=== PATIENT | female | born 1950 | race Caucasian/White ===

== ENCOUNTER 2016-12-16 09:03 | Emergency (ER) | payer OTHER ==
[2016-12-16 09:04] VITALS: BMI 22.3
[2016-12-16 09:16] VITALS: RESP 18; TEMP 98.8
[2016-12-16 09:52] LABS: BASO # 0.03 K/mm3 (0.0-2.0); BASO % 0.7 % (0.0-3.0); EOS # 0.1 (0.0-0.7); EOS % 1.1 % (1.5-5.0); GRAN # 1.53 (1.4-6.5); GRAN % 34.2 % (50.0-68.0); HEMATOCRIT 38.4 % (36.0-48.0); LYMPH # 2.7 (1.2-3.4); LYMPH % 59.7 % (22.0-35.0); MEAN CELL VOLUME 81.7 fl (80.0-105.0); MEAN CORPUSCULAR HEMOGLOBIN 28.1 pg (25.0-35.0); MEAN CORPUSCULAR HGB CONC 34.4 g/dl (31.0-37.0); MEAN PLATELET VOLUME 10.2 fl (7.0-11.0); MONO # 0.2 (0.1-0.6); MONO % 4.3 % (1.0-6.0); WHITE BLOOD COUNT 4.5 10^3/ul (4.5-11.0)
--- NOTE | 2016-12-16 09:52 | ED PDOC ---
Arrival/HPI - General Chief Complaint: Back Pain Time Seen by Provider: 12/16/16 09:19 Historian: Patient - History of Present Illness Narrative History of Present Illness (Text): 12/16/16 09:49 Patient is a 66 yo female presents to ED complaining of right sided back pain radiating to her lower abdomen for the past 3 days. Patient is uncertain whether there was injury, but states pain is intermittent and does not appear to be associated with walking or activity. Denies urinary symptoms. Denies rash. Denies swelling. No associated nausea or vomiting. Pain sharp and stabbing. Pain does not radiate down leg. No associated numbness or weakness to leg. Time/Duration: Prior to Arrival Symptom Onset: Gradual Past Medical History - Reproductive Menopause: Yes - Cardiac Hx Pacemaker: No - Pulmonary Hx Respiratory Disorders: No - Neurological Hx Neurological Disorder: No - HEENT Hx HEENT Disorder: No - Renal Hx Renal Disorder: No - Endocrine/Metabolic Hx Endocrine Disorders: No - Hematological/Oncological Hx Blood Disorders: No - Integumentary Hx Dermatological Disorder: No - Musculoskeletal/Rheumatological Hx Musculoskeletal Disorders: No - Psychiatric Hx Substance Use: No - Surgical History Hx Section: Yes Other/Comment: Overy cyst removal - Anesthesia Hx Anesthesia Reactions: No Hx Malignant Hyperthermia: No - Suicidal Assessment Feels Threatened In Home Enviroment: No Family/Social History Family/Social History: Unknown Family HX Smoking Status: Never Smoked Hx Alcohol Use: No Hx Substance Use: No Allergies/Home Meds Allergies/Adverse Reactions: Allergies No Known Allergies Allergy (Verified 12/16/16 09:16) Home Medications: Home Meds Medication Instructions Recorded Confirmed Simvastatin 20 mg PO DAILY 02/19/16 12/16/16 Review of Systems - Review of Systems Constitutional: absent: Fatigue, Fevers ENT: absent: Hearing Changes Respiratory: absent: SOB Cardiovascular: absent: Chest Pain Gastrointestinal: Abdominal Pain. absent: Stool Changes, Constipation, Diarrhea , Nausea, Vomiting Genitourinary Female: absent: Dysuria, Frequency, Hematuria, Urine Output Changes, Vaginal Bleeding Musculoskeletal: Back Pain. absent: Neck Pain Skin: absent: Rash Neurological: absent: Headache, Dizziness, Focal Weakness, Facial Droop Endocrine: absent: Polyuria Physical Exam Vital Signs Reviewed: Yes Vital Signs Temp Pulse Resp BP Pulse Ox 12/16/16 11:05 74 18 145/89 100 12/16/16 10:02 78 18 148/91 H 100 12/16/16 09:12 98.8 F 107 H 18 144/100 H 99 Temperature: Afebrile Appearance: Positive for: Well-Appearing, Non-Toxic Pain Distress: Mild Mental Status: Positive for: Alert and Oriented X 3 - Systems Exam Head: Present: Atraumatic Pupils: Present: PERRL Mouth: Present: Moist Mucous Membranes Pharnyx: No: ERYTHEMA Nose (Internal): Present: Normal Inspection Neck: Present: Normal Range of Motion. No: Meningeal Signs Respiratory/Chest: Present: Clear to Auscultation. No: Respiratory Distress Cardiovascular: Present: Regular Rate and Rhythm Abdomen: Present: Tenderness (MILD inguinal, rlq pain with no rebound or guarding, no vesicular rash noted). No: Peritoneal Signs, Guarding, Hernias, Scars Rectal: No: Gross Blood Back: Present: Other (pain to right lower lateral back extending to buttock, no rash or soft tissue swelling noted, no pain with straight leg testing). No: CVA Tenderness, Midline Tenderness Upper Extremity: Present: Normal Inspection Lower Extremity: Present: Normal Inspection, NORMAL PULSES, Neurovascularly Intact. No: Edema, CALF TENDERNESS, Tenderness, Swelling Neurological: Present: Motor Func Grossly Intact, Normal Sensory Function Skin: Present: Warm Psychiatric: Present: Normal Insight, Normal Concentration Medical Decision Making ED Course and Treatment: Patient is a 66 yo female, states that she has past history of kidney stones, presents to ED with history of flank pain radiating to lower abdomen. Denies known injury. Denies rash. Denies chest pain or shortness of breath. On exam, she has no pain with direct palpation or range of motion of her hip, knee or ankle. No midline lumbar tenderness noted. NO cva tenderess. UA reveals microscopic blood. CT abdomen/pelvis obtained, result was reviewed with patient. On re-exam, she is PAIN FREE with no difficulty ambulating, no pain with palpation or ROM. No chest pain or abdominal pain on re-exam. No associated diarrhea or nausea/vomiting. NO rlq pain on palpation. Cannot exclude possible renal colic as ua noted and flank pain radiating to groin history, although current CT with no hydronephrosis. No fever. As she is pain free now, will be discharged with advised follow-up with her PMD. Daughter updated on treatment plan. - Lab Interpretations Lab Results: 12/16/16 09:30 12/16/16 09:30 Lab Results 12/16/16 09:30: Sodium 143, Potassium 3.4 L, Chloride 106, Carbon Dioxide 26, Anion Gap 14, BUN 13, Creatinine 0.9, Est GFR ( Amer) > 60, Est GFR (Non- Af Amer) > 60, Random Glucose 121 H, Calcium 9.5, Total Bilirubin 0.6, AST 39 H , ALT 34, Alkaline Phosphatase 44, Total Protein 7.0, Albumin 4.2, Globulin 2.7 , Albumin/Globulin Ratio 1.6 12/16/16 09:30: Urine Color Yellow, Urine Appearance Sl cloudy, Urine pH 6.0, Ur Specific [place] 1.015, Urine Protein Negative, Urine Glucose (UA) Negative, Urine Ketones Negative, Urine Blood Moderate H, Urine Nitrate Negative, Urine Bilirubin Negative, Urine Urobilinogen 0.2, Ur Leukocyte Esterase Negative, Urine RBC 1 - 3, Urine WBC Negative 12/16/16 09:30: WBC 4.5, RBC 4.70, Hgb 13.2, Hct 38.4, MCV 81.7, MCH 28.1, MCHC 34.4, RDW 14.0, Plt Count 171, MPV 10.2, Gran % 34.2 L, Lymph % (Auto) 59.7 H, [place] % (Auto) 4.3, Eos % (Auto) 1.1 L, Baso % (Auto) 0.7, Gran # 1.53, Lymph # 2.7, Bucks # 0.2, Eos # 0.1, Baso # 0.03 - RAD Interpretation Radiology Orders: 12/16/16 09:32 ABD & PELVIS W/O PO OR IV CONT [CT] Stat - Medication Orders Current Medication Orders: Discontinued Medications Potassium Chloride (K-Dur 20 Meq Er Tab) 20 meq PO STAT STA Stop: 12/16/16 10:47 Last Admin: 12/16/16 11:07 Dose: 20 meq Disposition/Present on Arrival - Present on Arrival Any Indicators Present on Arrival: No History of DVT/PE: No History of Uncontrolled Diabetes: No Urinary Catheter: No History of Decub. Ulcer: No History Surgical Site Infection Following: None - Disposition Have Diagnosis and Disposition been Completed?: Yes Diagnosis: Back pain, Flank pain Disposition: HOME/ ROUTINE Disposition Time: 11:00 Patient Plan: Discharge Condition: GOOD Discharge Instructions (ExitCare): Flank Pain (ED), Back Pain (ED) Additional Instructions: For any rash, any fever, any chest pain or shortness of breath, any nausea or vomiting, any difficulty urinating, any numbness or weakness, any persistent or worsening of any symptoms, get rechecked. Follow-up with your primary care doctor in 1-2 days. Prescriptions: Naproxen 250 mg PO BID PRN #10 tablet PRN Reason: Pain, Mild (1-3) Forms: [employer] (Danish)
[2016-12-16 09:53] LABS: URINE BILIRUBIN NEGATIVE (NEGATIVE); URINE BLOOD MODERATE (NEGATIVE); URINE GLUCOSE (UA) NEGATIVE (NEGATIVE); URINE KETONE NEGATIVE (NEGATIVE); URINE LEUKOCYTE ESTERASE NEGATIVE Leu/uL (NEGATIVE); URINE PROTEIN NEGATIVE mg/dL (<30 mg/dL); URINE UROBILINOGEN 0.2 E.U./dL (<1 E.U./dL)
[2016-12-16 09:55] LABS: URINE APPEARANCE SL CLOUDY (CLEAR); URINE COLOR YELLOW (YELLOW)
[2016-12-16 10:02] VITALS: O2SAT 100
[2016-12-16 10:03] LABS: ALB/GLOB RATIO 1.6 (1.1-1.8); ALKALINE PHOSPHATASE 44 U/L (38-126); ALT/SGPT 34 U/L (7-56); AST/SGOT 39 U/L (14-36); BILIRUBIN,TOTAL 0.6 mg/dL (0.2-1.3); BLOOD UREA NITROGEN 13 mg/dL (7-21); CALCIUM 9.5 mg/dL (8.4-10.5); CARBON DIOXIDE 26 mmol/L (21-33); CHLORIDE 106 mmol/L (98-107); GFR AFRICAN-AMERICAN > 60; GLUCOSE,RANDOM 121 mg/dL (70-110); POTASSIUM 3.4 mmol/L (3.6-5.0); SODIUM 143 mmol/L (132-148)
[2016-12-16 10:07] LABS: URINE WBC NEGATIVE /hpf (0-6)
--- NOTE | 2016-12-16 10:13 | CT ---
PROCEDURE: CT Abdomen and Pelvis without intravenous contrast HISTORY: right flank pain COMPARISON: None. TECHNIQUE: Without contrast. Contrast Dose: Radiation dose: Total exam DLP = 242 mGy-cm. This CT exam was performed using one or more of the following dose reduction techniques: Automated exposure control, adjustment of the mA and/or kV according to patient size, and/or use of iterative reconstruction technique. FINDINGS: LOWER THORAX: Unremarkable. LIVER: Unremarkable. No gross lesion or ductal dilatation. GALLBLADDER AND BILE DUCTS: Unremarkable. PANCREAS: Unremarkable. No gross lesion or ductal dilatation. SPLEEN: Unremarkable. ADRENALS: Unremarkable. No mass. KIDNEYS AND URETERS: Unremarkable. No hydronephrosis. No solid mass. VASCULATURE: Unremarkable. No aortic aneurysm. BOWEL: Unremarkable. No obstruction. No gross mural thickening. APPENDIX: Unremarkable. Normal appendix. PERITONEUM: Unremarkable. No free fluid. No free air. LYMPH NODES: Unremarkable. No enlarged lymph nodes. BLADDER: Unremarkable. REPRODUCTIVE: Unremarkable. BONES: No acute fracture. OTHER FINDINGS: None. IMPRESSION: No acute findings
[2016-12-16] MEDS ORDERED: Potassium Chloride 20 mEq ER Tab PO STA (10:46)
[2016-12-16 11:05] VITALS: BP 145/89; PULSE 74
== END 2016-12-16 11:08 | disposition home or self-care (01) ==
LOC: ED 09:03
DX: M54.9 Dorsalgia, unspecified (principal); R10.9 Unspecified abdominal pain